=== PATIENT | female | born 1990 | race Caucasian/White ===

== ENCOUNTER → 2016-10-18 | Emergency (ER) | payer OTHER ==
[2016-10-18 23:13] VITALS: BP 94/53; PULSE 75; TEMP 97.4; BMI 29.2
--- NOTE | 2016-10-19 01:30 | PDOC ---
*Physical Exam - Vital Signs Last Vital Signs Temp Pulse Resp BP Pulse Ox 97.4 F L 75 17 94/53 99 10/18/16 23:05 10/18/16 23:05 10/18/16 23:05 10/18/16 23:05 10/18/16 23:05 Medical Decision Making - Medical Decision Making 10/19/16 01:30 25 yo F s/p injury upper extremity Pending xray Pt seen by Midlevel Provider under my direct supervision I agree with plan as outlined by Midlevel Provider *DC/Admit/Observation/Transfer Diagnosis at time of Disposition: Arm pain - Discharge Dispostion Disposition: HOME Condition at time of disposition: Stable - Patient Instructions Printed Discharge Instructions: DI for Arm Pain Additional Instructions: Give patient Tylenol or Motrin for pain as needed. Follow up with Primary Care Provider for further evaluation. Print Language: TRINIDADIAN
--- NOTE | 2016-10-19 03:29 | PDOC ---
History of Present Illness - General Chief Complaint: Pain, Acute Stated Complaint: PAIN Time Seen by Provider: 10/18/16 23:40 History Source: Care Provider Exam Limitations: Clinical Condition - History of Present Illness Initial Comments: 10/19/16 03:25 25y Female patient w/ PmHx: Severe Mental Retardation presented to ED by caregiver c/o possible right elbow injury. Caregiver states patient will not fully extend right arm and grimaces with range of motion. She states patient usually uses both arms frequently. Caregiver denies obvious trauma, injury, fall to affected arm. She states she is unaware of any injury that may have occurred. Occurred: reports: this evening Severity: reports: mild Upper Extremity Pain Location: right: elbow, arm Method of Injury: reports: unknown. denies: assault, burn, direct blow, fell, incised, motor vehicle accident, sports injury, twisted, other Modifying Factors: improves with: pain medication. worse with: None, cold therapy, immobilization, rest, other Associated Symptoms: See HPI Extremity Pain Location - Extremity Pain Location Extremity Pain Locations: right: elbow, arm Past History - Travel Traveled outside of the country in the last 30 days: No Close contact w/someone who was outside of country & ill: No - Past Medical History Allergies/Adverse Reactions: Allergies Allergy/AdvReac Type Severity Reaction Status Date / Time No Known Allergies Allergy Verified 10/18/16 23:04 Home Medications: Ambulatory Orders Aripiprazole 5 mg PO AM 10/19/16 Aripiprazole [Abilify] 20 mg PO AM 10/19/16 Cholecalciferol (Vitamin D3) [Vitamin D3] 2,000 iu PO DAILY 10/19/16 Citalopram Hydrobromide [Citalopram HBr] 20 mg PO DAILY 10/19/16 Clonazepam [Klonopin] 1 mg PO BID 10/19/16 Clonidine HCl 0.2 mg PO HS 10/19/16 Clonidine HCl [Catapres] 0.05 mg PO BID 10/19/16 Fluconazole 150 mg PO ONCE 10/19/16 Polyethylene Glycol 3350 [Miralax (For Bowel Prep) -] 17 gm PO DAILY 10/19/16 Ranitidine HCl 75 mg PO BID 10/19/16 Vitamin D2 50,000 iu PO WEEKLY 10/19/16 Other medical history: "Mentally Disabled" - Immunization History Immunization Up to Date: Yes - Psycho/Social/Smoking Cessation Hx Suicidal Ideation: No Smoking History: Never smoked Information on smoking cessation initiated: No Hx Alcohol Use: No Drug/Substance Use Hx: No Substance Use Type: None Review of Systems - Review of Systems Able to Perform ROS?: Yes Is the patient limited Swiss proficient: No Musculoskeletal: Yes: Other (Rt Elbow Pain) All Other Systems: Reviewed and Negative *Physical Exam - Vital Signs Last Vital Signs Temp Pulse Resp BP Pulse Ox 97.4 F L 75 17 94/53 99 10/18/16 23:05 10/18/16 23:05 10/18/16 23:05 10/18/16 23:05 10/18/16 23:05 - Physical Exam General Appearance: Yes: Nourished, Appropriately Dressed. No: Apparent Distress, Mild Distress, Moderate Distress, Severe Distress Respiratory/Chest: positive: Lungs Clear, Normal Breath Sounds. negative: Chest Tender, Respiratory Distress, Accessory Muscle Use, Labored Respiration, Rapid RR Cardiovascular: positive: Regular Rhythm, Regular Rate. negative: S1, S2, Edema , JVD Musculoskeletal: positive: Normal Inspection, Decreased Range of Motion (Rt Arm/ Elbow). negative: CVA Tenderness, Vertebral Tenderness Extremity: positive: Normal Capillary Refill, Normal Inspection. negative: Normal Range of Motion (Patient withdraw Rt arm during passive ROM. Patient extends arm when prompt to. No swelling, tenderness, erythema, bruising, or signs of injury.), Tender, Pedal Edema, Swelling, Calf Tenderness, Erythema, Inflammation Integumentary: positive: Normal Color, Dry, Warm Neurologic: positive: Alert, Normal Mood/Affect, Normal Response ED Treatment Course - RADIOLOGY Radiology Studies Ordered: Category Date Time Status ELBOW-RIGHT [RAD] Stat Radiology 10/18/16 23:50 Ordered *DC/Admit/Observation/Transfer Diagnosis at time of Disposition: Arm pain Qualifiers: Laterality: right Qualified Code(s): M79.601 - Pain in right arm - Discharge Dispostion Disposition: HOME Condition at time of disposition: Stable Admit: No - Patient Instructions Printed Discharge Instructions: DI for Arm Pain Additional Instructions: Give patient Tylenol or Motrin for pain as needed. Follow up with Primary Care Provider for further evaluation. Print Language: RUSSIAN
--- NOTE | 2016-10-19 08:14 | PDOC ---
Patient Follow-up (Call Back) - Post ED Follow - Up Condition at time of discharge: Stable Disposition at time of original discharge: HOME Reason for Call Back: Radiology ([facility]ed [facility] as well as patient's mother. Could not get in touch with anyone at [facility]. Left message for mother as the patient's xray read showed radial head fracture and she was not splinted.)
--- NOTE | 2016-10-19 08:43 | PDOC ---
Patient Follow-up (Call Back) - Post ED Follow - Up Condition at time of discharge: Stable Disposition at time of original discharge: HOME Reason for Call Back: Radiology (The patient's mother called me back. She is going to get a hold of the facility the patient is at and bring her back in for splinting.)
== END | disposition home or self-care (01) ==
LOC: JER 22:42
DX: M79.601 Pain in right arm (principal); F79 Unspecified intellectual disabilities
CPT/HCPCS: 73070-TC-RT; 99282-25

== ENCOUNTER 2016-10-19 11:45 | Emergency (ER) | payer OTHER ==
[2016-10-19 11:52] VITALS: BP 104/66; PULSE 77; TEMP 97.6; BMI 20.5
--- NOTE | 2016-10-19 12:52 | PDOC ---
History of Present Illness - General Chief Complaint: Revisit,Radiology Variance Stated Complaint: REVISIT/ X RAY RECALLED Time Seen by Provider: 10/19/16 12:10 History Source: Other (direct care worker) Exam Limitations: Physical Impairment (cerebral palsy) - History of Present Illness Initial Comments: 10/19/16 13:12 25-year-old female resident of [facility] sent back in for abnormal radiology reading of elbow x-ray that was done yesterday. As per radiologist patient had radial head fracture. As per direct care worker unsure of how patient sustained injury but had noted her guarding her right elbow yesterday during blood pressure check. Timing/Duration: unsure Severity: mild Associated Symptoms: reports: denies symptoms Past History - Past Medical History Allergies/Adverse Reactions: Allergies Allergy/AdvReac Type Severity Reaction Status Date / Time No Known Allergies Allergy Verified 10/19/16 11:52 Home Medications: Ambulatory Orders Aripiprazole 5 mg PO AM 10/19/16 Aripiprazole [Abilify] 20 mg PO AM 10/19/16 Cholecalciferol (Vitamin D3) [Vitamin D3] 2,000 iu PO DAILY 10/19/16 Citalopram Hydrobromide [Citalopram HBr] 20 mg PO DAILY 10/19/16 Clonazepam [Klonopin] 1 mg PO BID 10/19/16 Clonidine HCl 0.2 mg PO HS 10/19/16 Clonidine HCl [Catapres] 0.05 mg PO BID 10/19/16 Fluconazole 150 mg PO ONCE 10/19/16 Polyethylene Glycol 3350 [Miralax (For Bowel Prep) -] 17 gm PO DAILY 10/19/16 Ranitidine HCl 75 mg PO BID 10/19/16 Vitamin D2 50,000 iu PO WEEKLY 10/19/16 Cardiac Disorders: Yes (ASHD) GI Disorders: Yes (GERD) Psychiatric Problems: Yes (IMPULSE CONTROL DISORDER) Other medical history: INSOMNIA, PICA, PDD, MR, AUTISM - Immunization History Immunization Up to Date: Yes - Psycho/Social/Smoking Cessation Hx Suicidal Ideation: No Smoking History: Never smoked Hx Alcohol Use: No Drug/Substance Use Hx: No Substance Use Type: None Patient Lives Alone: No Lives with/in: group home Review of Systems - Review of Systems Able to Perform ROS?: No Constitutional: No: Symptoms Reported HEENTM: No: Symptoms Reported Respiratory: No: Symptoms reported Musculoskeletal: Yes: Joint Pain (rt elbow) Integumentary: No: Symptoms Reported *Physical Exam - Vital Signs Last Vital Signs Temp Pulse Resp BP Pulse Ox 97.6 F 77 20 104/66 100 10/19/16 11:48 10/19/16 11:48 10/19/16 11:48 10/19/16 11:48 10/19/16 11:48 - Physical Exam General Appearance: Yes: Nourished, Appropriately Dressed. No: Apparent Distress HEENT: positive: EOMI Extremity: positive: Normal Capillary Refill, Normal Inspection, Normal Range of Motion Integumentary: positive: Normal Color, Warm, Moist Neurologic: positive: Motor Strength 5/5 (ambulatory) Procedures - Splinting Splint Location: Right: Forearm Hand-Made Type: orthoglass Splint Type: Yes: Long Arm Post-Proc Neuro Vasc Exam: normal Moshe Bandage: 4" Sling: Yes Complications: No Good repositioning: Yes Medical Decision Making - Medical Decision Making 10/19/16 12:38 Patient sent here for abnormal radiology reading showing a radial head fracture. Patient was placed in a long-arm splint and sling and told to follow- up with ortho. *DC/Admit/Observation/Transfer Diagnosis at time of Disposition: Radial head fracture Qualifiers: Encounter type: initial encounter Fracture type: closed Laterality: right - Discharge Dispostion Disposition: HOME Condition at time of disposition: Good - Referrals Referrals: Felipe Conrad MD [Staff Physician] - - Patient Instructions Printed Discharge Instructions: How to Use a Sling, DI for Forearm Fracture Additional Instructions: Please follow-up with referred orthopedist or may use your own orthopedist. Please have patient with a sling during the day and may remove at night. May give Tylenol for discomfort.
== END 2016-10-19 13:20 | disposition home or self-care (01) ==
LOC: JERFT 11:45 → JER 11:45 → JERFT 13:20
PROC: 2W38X1Z Immobilization of Right Upper Extremity using Splint (ICD-10-PCS; principal; 2016-10-19)
DX: S52.124A Nondisplaced fracture of head of right radius, initial encounter for closed fracture (principal); X58.XXXA Exposure to other specified factors, initial encounter; Y93.9 Activity, unspecified; I25.10 Atherosclerotic heart disease of native coronary artery without angina pectoris; F63.9 Impulse disorder, unspecified; K21.9 Gastro-esophageal reflux disease without esophagitis; F84.0 Autistic disorder; F79 Unspecified intellectual disabilities; G47.00 Insomnia, unspecified
CPT/HCPCS: 29105; 99281-25

== ENCOUNTER 2016-10-28 09:11 | Emergency (ER) | payer OTHER ==
[2016-10-28 09:24] VITALS: BMI 25.2
--- NOTE | 2016-10-28 09:47 | PDOC ---
History of Present Illness - General Chief Complaint: Revisit,Wound Recheck Stated Complaint: REVISIT/ RT ARM IN CAST-DISCOLORATION Time Seen by Provider: 10/28/16 09:26 History Source: Care Provider (aide) Exam Limitations: Other (nonverbal at baseline) - History of Present Illness Initial Comments: 25 yo F history tan, , nonverbal at baseline. She was recently treated in ED for R radial head fracture, placed in a splint. She has removed the splint in the past. Today she was sent for discoloration of her fingers of the R hand- they appeared mottled. Patient unable to offer any complaints, she does not communicate verbally, however, she does not appear to have any discomfort. Past History - Past Medical History Allergies/Adverse Reactions: Allergies Allergy/AdvReac Type Severity Reaction Status Date / Time No Known Allergies Allergy Verified 10/28/16 09:15 Home Medications: Ambulatory Orders Aripiprazole 5 mg PO AM 10/19/16 Aripiprazole [Abilify] 20 mg PO AM 10/19/16 Cholecalciferol (Vitamin D3) [Vitamin D3] 2,000 iu PO DAILY 10/19/16 Citalopram Hydrobromide [Citalopram HBr] 20 mg PO DAILY 10/19/16 Clonazepam [Klonopin] 1 mg PO BID 10/19/16 Clonidine HCl 0.2 mg PO HS 10/19/16 Clonidine HCl [Catapres] 0.05 mg PO BID 10/19/16 Fluconazole 150 mg PO ONCE 10/19/16 Polyethylene Glycol 3350 [Miralax (For Bowel Prep) -] 17 gm PO DAILY 10/19/16 Ranitidine HCl 75 mg PO BID 10/19/16 Vitamin D2 50,000 iu PO WEEKLY 10/19/16 Cardiac Disorders: Yes (ASHD) GI Disorders: Yes (GERD) Psychiatric Problems: Yes (IMPULSE CONTROL DISORDER) Other medical history: MR,AUTISM,PICA - Immunization History Immunization Up to Date: Yes - Psycho/Social/Smoking Cessation Hx Suicidal Ideation: No Smoking History: Never smoked Hx Alcohol Use: No Drug/Substance Use Hx: No Substance Use Type: None Review of Systems - Review of Systems Able to Perform ROS?: No (nonverbal) *Physical Exam - Vital Signs Last Vital Signs Temp Pulse Resp BP Pulse Ox 75 17 84/53 96 10/28/16 09:15 10/28/16 09:15 10/28/16 09:15 10/28/16 09:15 - Physical Exam Comments: GENERAL: Awake, alert, in no acute distress HEAD: No signs of trauma EYES: PERRLA, EOMI, sclera anicteric, conjunctiva clear ENT: Auricles normal inspection, hearing grossly normal, nares patent, oropharynx clear without exudates. Moist mucosa NECK: Normal ROM, supple, no lymphadenopathy, JVD, or masses LUNGS: Breath sounds equal, clear to auscultation bilaterally. No wheezes, and no crackles HEART: Regular rate and rhythm, normal S1 and S2, no murmurs, rubs or gallops ABDOMEN: Soft, nontender, normoactive bowel sounds. No guarding, no rebound. No masses EXTREMITIES: R arm in splint, with slight mottling of fingers. Hands cool to touch bilaterally. Normal cap refill. Normal range of motion, no edema. No clubbing or cyanosis. No cords, erythema, or tenderness NEUROLOGICAL: Moving all extremities B/L. SKIN: Warm, Dry, normal turgor, no rashes or lesions noted. Procedures - Splinting Splint Location: Right: Elbow Pre-Proc Neuro Vasc Exam: normal Hand-Made Type: orthoglass Splint Type: Yes: Long Arm Post-Proc Neuro Vasc Exam: normal Moshe Bandage: 3" Sling: Yes Complications: No Progress: 10/28/16 10:55 Old splint removed, as it was extremely tight around the upper arm. At this point it became apparent that the splint was on backwards (the wrist portion was on the upper arm), which likely led to the mottling of her hand- the wrist portion was normal, compressing the upper arm. I created a new splint. Neurovascularly intact. *DC/Admit/Observation/Transfer Diagnosis at time of Disposition: Radial head fracture Qualifiers: Encounter type: initial encounter Fracture type: closed Fracture alignment: nondisplaced Laterality: left Qualified Code(s): S52.125A - Nondisplaced fracture of head of left radius, initial encounter for closed fracture - Discharge Dispostion Disposition: HOME Condition at time of disposition: Stable Admit: No - Referrals Referrals: Felipe Conrad MD [Staff Physician] - - Patient Instructions Printed Discharge Instructions: How to Take Care of Your Splint
[2016-10-28 11:21] VITALS: BP 92/68; PULSE 78
== END 2016-10-28 11:21 | disposition home or self-care (01) ==
LOC: JER 09:11
PROC: 2W38X1Z Immobilization of Right Upper Extremity using Splint (ICD-10-PCS; principal; 2016-10-28)
DX: S52.125D Nondisplaced fracture of head of left radius, subsequent encounter for closed fracture with routine healing (principal); X58.XXXD Exposure to other specified factors, subsequent encounter; Y93.89 Activity, other specified; Y92.89 Other specified places as the place of occurrence of the external cause; Y99.8 Other external cause status; I25.10 Atherosclerotic heart disease of native coronary artery without angina pectoris; F63.9 Impulse disorder, unspecified; F72 Severe intellectual disabilities; F84.0 Autistic disorder
CPT/HCPCS: 29105; 99285-25

== ENCOUNTER 2016-11-05 16:08 | Emergency (ER) | payer OTHER ==
[2016-11-05 16:49] VITALS: BP 110/60; PULSE 78; TEMP 98; BMI 24.6
--- NOTE | 2016-11-05 17:31 | PDOC ---
History of Present Illness - General Chief Complaint: Redness To Affected Area Stated Complaint: SWELLING ON RT ARM Time Seen by Provider: 11/05/16 17:02 History Source: Other (home care nurse) Exam Limitations: No Limitations - History of Present Illness Initial Comments: 11/05/16 17:23 25 yr old female presents to the ED for evaluation of swelling to the right hand with subjective concern of feeling the fingers as cool, as per consultation sheet provided by the boarding house manager. Patient status post right radial head fracture on the 25 and has an upcoming orthopedic appointment on the . As per staff patient does not keep her sling on and is often not elevating as recommended. Patient with history of mental retardation, cerebral palsy. Timing/Duration: 24 hours Severity: mild Associated Symptoms: reports: denies symptoms Past History - Travel Traveled outside of the country in the last 30 days: No - Past Medical History Allergies/Adverse Reactions: Allergies Allergy/AdvReac Type Severity Reaction Status Date / Time No Known Allergies Allergy Verified 11/05/16 16:44 Home Medications: Ambulatory Orders Aripiprazole 5 mg PO AM 10/19/16 Aripiprazole [Abilify] 20 mg PO AM 10/19/16 Cholecalciferol (Vitamin D3) [Vitamin D3] 2,000 iu PO DAILY 10/19/16 Citalopram Hydrobromide [Citalopram HBr] 20 mg PO DAILY 10/19/16 Clonazepam [Klonopin] 1 mg PO BID 10/19/16 Clonidine HCl 0.2 mg PO HS 10/19/16 Clonidine HCl [Catapres] 0.05 mg PO BID 10/19/16 Polyethylene Glycol 3350 [Miralax (For Bowel Prep) -] 17 gm PO DAILY 10/19/16 Cardiac Disorders: Yes (ASHD) GI Disorders: Yes (GERD) Psychiatric Problems: Yes (IMPULSE CONTROL DISORDER) - Immunization History Immunization Up to Date: Yes - Psycho/Social/Smoking Cessation Hx Anxiety: No Suicidal Ideation: No Smoking History: Never smoked Hx Alcohol Use: No Drug/Substance Use Hx: No Substance Use Type: None Patient Lives Alone: No Lives with/in: assisted living Review of Systems - Review of Systems Able to Perform ROS?: Yes Constitutional: No: Symptoms Reported Cardiac (ROS): Yes: Edema (to right hand) Musculoskeletal: No: Symptoms Reported, Joint Swelling Integumentary: No: Symptoms Reported, Erythema, Lumps, Pallor Neurological: No: Weakness *Physical Exam - Vital Signs Last Vital Signs Temp Pulse Resp BP Pulse Ox 98 F 78 18 110/60 98 11/05/16 16:43 11/05/16 16:43 11/05/16 16:43 11/05/16 16:43 11/05/16 16:43 - Physical Exam General Appearance: Yes: Nourished, Appropriately Dressed. No: Apparent Distress Comments:: 11/05/16 17:27 2+ right radial Extremity: positive: Normal Capillary Refill (2+) Integumentary: positive: Normal Color, Warm, Moist, Swelling (2+ pitting edema to the dorsal aspect of right hand to the base of first and second digits. Skin warm to touch and symmetrical to left hand) Neurologic: positive: Motor Strength 5/5 (right hand) Procedures - Splinting Splint Type: Yes: Long Arm (right) Moshe Bandage: 3" Sling: Yes Complications: No Good repositioning: Yes Medical Decision Making - Medical Decision Making 11/05/16 17:27 Here for evaluation of swelling to the right hand. Patient had a long arm splint placed here in the ER. I removed the Moshe wrap and splint which did not appear to be tight. Patient also found with sling behind her back and not with the arm in place. Patient had a long-arm splint reapplied with a 70 angle position. Patient will be discharged home with supportive care instructions and spoke to the home nurse and regards to elevating and fracture care. *DC/Admit/Observation/Transfer Diagnosis at time of Disposition: Radial head fracture Qualifiers: Fracture type: closed Fracture alignment: nondisplaced Laterality: right Fracture healing: with routine healing - Discharge Dispostion Disposition: HOME Condition at time of disposition: Good - Patient Instructions Printed Discharge Instructions: How to Use a Sling, DI for Forearm Fracture Additional Instructions: Please keep extremity elevated higher than the heart. May apply ice to the affected area. Please follow-up with orthopedist as discussed.
== END 2016-11-05 17:39 | disposition home or self-care (01) ==
LOC: JERFT 16:08
DX: S52.125D Nondisplaced fracture of head of left radius, subsequent encounter for closed fracture with routine healing (principal); Y93.89 Activity, other specified; Y92.89 Other specified places as the place of occurrence of the external cause; X58.XXXA Exposure to other specified factors, initial encounter; I25.10 Atherosclerotic heart disease of native coronary artery without angina pectoris; F63.9 Impulse disorder, unspecified; F72 Severe intellectual disabilities; F84.0 Autistic disorder
CPT/HCPCS: 99282-25

== ENCOUNTER 2016-11-06 16:32 | Emergency (ER) | payer OTHER ==
[2016-11-06 16:46] VITALS: BMI 25.7
--- NOTE | 2016-11-06 17:22 | PDOC ---
History of Present Illness - General Chief Complaint: Injury Stated Complaint: FALL/INJURY Time Seen by Provider: 11/06/16 17:07 - History of Present Illness Initial Comments: 11/06/16 18:59 Patient is a 25-year-old female past medical history of MR with patient nonverbal at baseline. Presents to the emergency department today complaining of falling. She is with her custody officer. Assembler Truck Trailer states that she saw the patient fall and hit her leg on the ground. Didn't. Denies hitting her head. This is the second fall the patient has had within the past day. She also fell a couple of times yesterday. Assembler Truck Trailer is concerned there is a reason for her falling. She is also concerned that there is injury to the left knee. Patient is unable to verbalize any complaints. Review of system is unable to be obtained. Past History - Travel Traveled outside of the country in the last 30 days: No Close contact w/someone who was outside of country & ill: No - Past Medical History Allergies/Adverse Reactions: Allergies Allergy/AdvReac Type Severity Reaction Status Date / Time No Known Allergies Allergy Verified 11/06/16 16:40 Home Medications: Ambulatory Orders Aripiprazole 5 mg PO AM 10/19/16 Aripiprazole [Abilify] 20 mg PO AM 10/19/16 Cholecalciferol (Vitamin D3) [Vitamin D3] 2,000 iu PO DAILY 10/19/16 Citalopram Hydrobromide [Citalopram HBr] 20 mg PO DAILY 10/19/16 Clonazepam [Klonopin] 1 mg PO BID 10/19/16 Clonidine HCl 0.2 mg PO HS 10/19/16 Clonidine HCl [Catapres] 0.05 mg PO BID 10/19/16 Polyethylene Glycol 3350 [Miralax (For Bowel Prep) -] 17 gm PO DAILY 10/19/16 Cardiac Disorders: Yes (ASHD) GI Disorders: Yes (GERD) Psychiatric Problems: Yes (IMPULSE CONTROL DISORDER) Other medical history: PICA, MR,AUTISM - Immunization History Immunization Up to Date: Yes - Psycho/Social/Smoking Cessation Hx Anxiety: No Suicidal Ideation: No Smoking History: Never smoked Hx Alcohol Use: No Drug/Substance Use Hx: No Substance Use Type: None Review of Systems - Review of Systems Able to Perform ROS?: No (non-verbal) *Physical Exam - Vital Signs Last Vital Signs Temp Pulse Resp BP Pulse Ox 66 20 91/40 94 L 11/06/16 16:33 11/06/16 16:33 11/06/16 16:33 11/06/16 16:33 - Physical Exam General Appearance: Yes: Nourished, Appropriately Dressed. No: Apparent Distress HEENT: positive: EOMI, PARVEZ, Pharynx Normal, Other (excessive ear wax b/l unable to visualize TM's) Neck: positive: Trachea midline, Supple. negative: Tender, Rigid Respiratory/Chest: positive: Lungs Clear, Normal Breath Sounds. negative: Chest Tender, Respiratory Distress, Accessory Muscle Use, Rales, Rhonchi, Wheezing Cardiovascular: positive: Regular Rhythm, Regular Rate, S1, S2 (present). negative: Murmur Extremity: positive: Normal Capillary Refill, Normal Range of Motion, Other (pt unable to tell us if L knee is tender to palpation, r extremity with splint in place d/t old fracture) Integumentary: positive: Swelling (l knee), Bruising (l knee) Neurologic: positive: Other (unable to evaluate d/t MR) Medical Decision Making - Medical Decision Making 11/06/16 19:06 Patient is a 25-year-old female past medical history MR, nonverbal presents to the emergency department after having multiple falls. On exam she does have extensive earwax in both ears bilaterally. Patient also has swelling to the left lower extremity notably at the knee with mild abrasions. We'll order basic lab work to rule out infection including a UA as well given her falls are not typical. We will order knee x-ray and chest x-ray. 1. CBC, CMP UA, UC, preg 2. CXR, LLE x-ray 3. re-evaluate Reevaluate. Sign out given to Tadeo Lopez, EM resident
[2016-11-06 20:05] VITALS: BP 109/66; PULSE 71
[2016-11-06 20:08] LABS: URINE APPEARANCE CLEAR; URINE BILIRUBIN NEGATIVE (NEGATIVE); URINE BLOOD NEGATIVE (NEGATIVE); URINE COLOR YELLOW; URINE GLUCOSE (UA) NEGATIVE (NEGATIVE); URINE KETONE NEGATIVE (NEGATIVE); URINE LEUK ESTERASE NEGATIVE (NEGATIVE); URINE NITRITE NEGATIVE (NEGATIVE); URINE PROTEIN NEGATIVE (NEGATIVE); URINE UROBILINOGEN NEGATIVE mg/dL (0.2-1.0)
[2016-11-06] MEDS ORDERED: cefTRIAXone SODIUM 1 GM VIAL IM ONE (21:30)
--- NOTE | 2016-11-06 21:35 | PDOC ---
*Physical Exam - Vital Signs Last Vital Signs Temp Pulse Resp BP Pulse Ox 71 18 109/66 100 11/06/16 20:04 11/06/16 20:04 11/06/16 20:04 11/06/16 20:04 ED Treatment Course - ADDITIONAL ORDERS Additional order review: Laboratory Results 11/06/16 20:00 Urine Color Yellow Urine Appearance Clear Urine pH 5.0 Urine Protein Negative Urine Glucose (UA) Negative Urine Ketones Negative Urine Blood Negative Urine Nitrite Negative Urine Bilirubin Negative Urine Urobilinogen Negative Ur Leukocyte Esterase Negative Urine HCG, Qual Negative Medical Decision Making - Medical Decision Making 11/06/16 21:31 Pt found to have pneumonic process on chest xray. h/o fall. pt afebrile. UA negative. Will treat for pneumonia. Will give first dose of IM Rochephine and discharge with po Augmentin 50mg PO bid. *DC/Admit/Observation/Transfer Diagnosis at time of Disposition: Fall Pneumonia Qualifiers: Pneumonia type: due to unspecified organism Laterality: right - Discharge Dispostion Disposition: HOME Condition at time of disposition: Stable Admit: No - Prescriptions Prescriptions: Amox-Tr/K Cl [Augmentin - 500Mg Tablet] 1 tab PO BID #14 tab - Patient Instructions Printed Discharge Instructions: DI for Pneumonia -- Adult, Flat Foot
[2016-11-06] MEDS ORDERED: FLUCONAZOLE 50 MG TABLET PO ONE (21:40)
[2016-11-06] MEDS ORDERED: cefTRIAXone SODIUM 1 GM VIAL ONE (21:48)
[2016-11-06] MEDS ORDERED: FLUCONAZOLE 100 MG TABLET (UD) ONE (21:48)
== END 2016-11-06 22:03 | disposition home or self-care (01) ==
LOC: JER 16:32
DX: J18.9 Pneumonia, unspecified organism (principal); F79 Unspecified intellectual disabilities; Z91.81 History of falling; I25.10 Atherosclerotic heart disease of native coronary artery without angina pectoris; F63.9 Impulse disorder, unspecified; K21.9 Gastro-esophageal reflux disease without esophagitis
CPT/HCPCS: 71020-TC; 73560-TC-LT; 81003; 84703; 87086; 99283-25

== ENCOUNTER 2017-05-06 10:11 | Emergency (ER) | payer OTHER ==
[2017-05-06 10:50] VITALS: BP 100/56; PULSE 98; TEMP 97.5; BMI 23.9
--- NOTE | 2017-05-06 12:01 | PDOC ---
History of Present Illness - General Chief Complaint: Eye Problem Stated Complaint: EYE PROBLEM Time Seen by Provider: 05/06/17 11:54 - History of Present Illness Initial Comments: 05/06/17 12:56 The patient is a 26 year old female with a significant PMH of autism (non-verbal ), cerebral palsy who presents with her caregiver to the emergency department with right eye redness beginning approximately 3 days ago. As per the patients caregiver, the conjunctiva and surrounding skin of the patients right eye has become progressively redder over the past 3 days and she notes the patient has been rubbing it due to irritation. She is unsure if there is associated pain with the patients right eye redness as the patient is non-verbal. The patient's caregiver denies noting any associated discharge or swelling. She denies any changes in the patients medications. She denies any change in the patients cosmetic products. The patients caregiver also notes the patient has had a dry cough over the past day. The patient denies chest pain, shortness of breath, headache and dizziness. Denies fever, chills, nausea, vomit, diarrhea and constipation. Denies dysuria, frequency, urgency and hematuria. Allergies: NKA Past surgical history: None reported. Social history: No reported cigarette, alcohol, or drug use. PCP: Part of an unspecified caregiver facility. Past History - Past Medical History Allergies/Adverse Reactions: Allergies Allergy/AdvReac Type Severity Reaction Status Date / Time No Known Allergies Allergy Verified 05/06/17 10:41 Home Medications: Ambulatory Orders Aripiprazole 5 mg PO AM 10/19/16 Aripiprazole [Abilify] 20 mg PO AM 10/19/16 Cholecalciferol (Vitamin D3) [Vitamin D3] 2,000 iu PO DAILY 10/19/16 Citalopram Hydrobromide [Citalopram HBr] 20 mg PO DAILY 10/19/16 Clonazepam [Klonopin] 1 mg PO BID 10/19/16 Clonidine HCl 0.2 mg PO HS 10/19/16 Clonidine HCl [Catapres] 0.05 mg PO BID 10/19/16 Polyethylene Glycol 3350 [Miralax (For Bowel Prep) -] 17 gm PO DAILY 10/19/16 Amox-Tr/K Cl [Augmentin - 500Mg Tablet] 1 tab PO BID #14 tab 11/06/16 Polymyxin B Sulfate/Tmp [Polytrim Opthalmic Solution -] 1 drop OP Q6H 7 Days #1 bottle 05/06/17 Cardiac Disorders: Yes (ASHD) COPD: No GI Disorders: Yes (GERD) Psychiatric Problems: Yes (IMPULSE CONTROL DISORDER) - Immunization History Immunization Up to Date: Yes - Suicide/Smoking/Psychosocial Hx Smoking History: Never smoked Information on smoking cessation initiated: No Hx Alcohol Use: No Drug/Substance Use Hx: No Substance Use Type: None Review of Systems - Review of Systems Comments:: 05/06/17 12:56 GENERAL/CONSTITUTIONAL: No fever or chills. No weakness. HEAD, EYES, EARS, NOSE AND THROAT: (+) Right eye conjunctiva and surrounding skin redness. No change in vision. No ear pain or discharge. No sore throat. GASTROINTESTINAL: No nausea, vomiting, diarrhea or constipation. GENITOURINARY: No dysuria, frequency, or change in urination. CARDIOVASCULAR: No chest pain or shortness of breath. RESPIRATORY: (+) Dry cough. No wheezing, or hemoptysis. MUSCULOSKELETAL: No joint or muscle swelling or pain. No neck or back pain. SKIN: No rash NEUROLOGIC: No headache, vertigo, loss of consciousness, or change in strength/ sensation. ENDOCRINE: No increased thirst. No abnormal weight change. HEMATOLOGIC/LYMPHATIC: No anemia, easy bleeding, or history of blood clots. ALLERGIC/IMMUNOLOGIC: No hives or skin allergy. *Physical Exam - Vital Signs Last Vital Signs Temp Pulse Resp BP Pulse Ox 97.5 F L 98 H 16 100/56 97 05/06/17 10:42 05/06/17 10:42 05/06/17 10:42 05/06/17 10:42 05/06/17 10:42 - Physical Exam Comments: 05/06/17 12:57 GENERAL: Awake, alert, and fully oriented, in no acute distress HEAD: No signs of trauma EYES: PERRLA, EOMI, sclera anicteric, OD conjunctiva injected with minimal clear d/c. Fluorescien testing is negative for corneal abrasion. ENT: Auricles normal inspection, hearing grossly normal, nares patent, oropharynx clear without exudates. Moist mucosa NECK: Normal ROM, supple, no lymphadenopathy, JVD, or masses LUNGS: Breath sounds equal, clear to auscultation bilaterally. No wheezes, and no crackles HEART: Regular rate and rhythm, normal S1 and S2, no murmurs, rubs or gallops ABDOMEN: Soft, nontender, normoactive bowel sounds. No guarding, no rebound. No masses EXTREMITIES: Normal range of motion, no edema. No clubbing or cyanosis. No cords , erythema, or tenderness BACK: No midline spinal tenderness in cervical/thoracic/lumbar region NEUROLOGICAL: Normal speech, cranial nerves intact, negative pronator drift, 5/ 5 strength in all 4 extremities, normal sensation to light touch in all 4 extremities, normal cerebellar exam, normal gait, normal reflexes and tone SKIN: Warm, Dry, normal turgor, no rashes or lesions noted. Medical Decision Making - Medical Decision Making 05/06/17 12:49 26-year-old female with a history of cerebral palsy, nonverbal presents with right eye redness for 3 days. Vitals unremarkable. Exam with conjunctival erythema, but fluorescein testing negative for corneal abrasion, eyelids everted with no foreign body noted. Given clear discharge noted on exam, likely viral conjunctivitis. Will give Polytrim drops and provide referral for ophthalmology. *DC/Admit/Observation/Transfer Diagnosis at time of Disposition: Conjunctivitis - Discharge Dispostion Disposition: HOME Condition at time of disposition: Stable - Prescriptions Prescriptions: Polymyxin B Sulfate/Tmp [Polytrim Opthalmic Solution -] 1 drop OP Q6H 7 Days #1 bottle - Referrals Referrals: Pablo Steward MD [Staff Physician] - - Patient Instructions Additional Instructions: Follow-up with the hay chopper within 1 week. Give Crystal the eye drops every 6 hours for 7 days. Return to emergency department if Jerica has any new , worsening or concerning symptoms. - Post Discharge Activity - Attestations Physician Attestion: 05/06/17 12:53 I, Dr. Isidoro Hamm MD, attest that this document has been prepared under my direction and personally reviewed by me in its entirety. I further attest, that it accurately reflects all work, treatment, procedures and medical decision -making performed by me.
== END 2017-05-06 14:46 | disposition home or self-care (01) ==
LOC: JERFT 10:11 → JER 10:11
DX: H10.31 Unspecified acute conjunctivitis, right eye (principal); F84.0 Autistic disorder; G80.9 Cerebral palsy, unspecified
CPT/HCPCS: 99283-25

== ENCOUNTER 2018-04-08 07:56 | Emergency (ER) | payer OTHER ==
[2018-04-08 08:19] VITALS: BP 100/51; PULSE 87; TEMP 98.1; BMI 25.7
--- NOTE | 2018-04-08 08:19 | PDOC ---
History of Present Illness - General Chief Complaint: RX Refill Stated Complaint: MEDICATION Time Seen by Provider: 04/08/18 08:18 History Source: Long Term Records - History of Present Illness Initial Comments: 04/08/18 08:31 27year old female from [facility] long term history of MR and autism. As Per Bruno seo patient ran out of meds last night need the Am dose of Clonazepan 1mg dose. denies any other complaints at this time. 04/08/18 08:31 04/08/18 08:33 Past History - Past Medical History Allergies/Adverse Reactions: Allergies Allergy/AdvReac Type Severity Reaction Status Date / Time No Known Allergies Allergy Verified 05/06/17 10:41 Home Medications: Ambulatory Orders Aripiprazole 5 mg PO AM 10/19/16 Aripiprazole [Abilify] 20 mg PO AM 10/19/16 Cholecalciferol (Vitamin D3) [Vitamin D3] 2,000 iu PO DAILY 10/19/16 Citalopram Hydrobromide [Citalopram HBr] 20 mg PO DAILY 10/19/16 Clonazepam [Klonopin] 1 mg PO BID 10/19/16 Clonidine HCl 0.2 mg PO HS 10/19/16 Clonidine HCl [Catapres] 0.05 mg PO BID 10/19/16 Polyethylene Glycol 3350 [Miralax (For Bowel Prep) -] 17 gm PO DAILY 10/19/16 Amox-Tr/K Cl [Augmentin - 500Mg Tablet] 1 tab PO BID #14 tab 11/06/16 Polymyxin B Sulfate/Tmp [Polytrim Opthalmic Solution -] 1 drop OP Q6H 7 Days #1 bottle 05/06/17 Cardiac Disorders: Yes (ASHD) COPD: No GI Disorders: Yes (GERD) Psychiatric Problems: Yes (IMPULSE CONTROL DISORDER) - Immunization History Immunization Up to Date: Yes - Suicide/Smoking/Psychosocial Hx Smoking History: Never smoked Hx Alcohol Use: No Drug/Substance Use Hx: No Substance Use Type: None *Physical Exam - Vital Signs Last Vital Signs Temp Pulse Resp BP Pulse Ox 98.1 F 87 17 100/51 L 98 04/08/18 08:16 04/08/18 08:16 04/08/18 08:16 04/08/18 08:16 04/08/18 08:16 - Physical Exam General Appearance: Yes: Appropriately Dressed, Other (nonverbal) Moderate Sedation - Procedure Monitoring Vital Signs: Procedure Monitoring Vital Signs Temperature 98.1 F 04/08/18 08:16 Pulse Rate 87 04/08/18 08:16 Respiratory Rate 17 04/08/18 08:16 Blood Pressure 100/51 L 04/08/18 08:16 O2 Sat by Pulse Oximetry (%) 98 04/08/18 08:16 *DC/Admit/Observation/Transfer Diagnosis at time of Disposition: Medication administered - Discharge Dispostion Disposition: HOME - Referrals Referrals: Rosario Aguirre [Primary Care Provider] - 24 hours - Patient Instructions Additional Instructions: please follow up with PCP for additional refill. One dose of clonazepam 1 mg tab x1 given in the ED. - Post Discharge Activity
[2018-04-08] MEDS ORDERED: clonazePAM 0.5 MG TABLET PO ONE (08:31)
[2018-04-08] MEDS ORDERED: clonazePAM 0.5 MG TABLET ONE (08:33)
== END 2018-04-08 08:39 | disposition home or self-care (01) ==
LOC: JERFT 07:56
DX: Z76.0 Encounter for issue of repeat prescription (principal); K21.9 Gastro-esophageal reflux disease without esophagitis; I25.10 Atherosclerotic heart disease of native coronary artery without angina pectoris; F79 Unspecified intellectual disabilities; F84.0 Autistic disorder
CPT/HCPCS: 99281-25

== ENCOUNTER 2018-04-17 10:30 | Emergency (ER) | payer OTHER ==
[2018-04-17 10:41] VITALS: BP 91/46; PULSE 97; BMI 26.5
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
== END 2018-04-17 11:35 | disposition home or self-care (01) ==
LOC: JERFT 10:30
DX: Z04.1 Encounter for examination and observation following transport accident (principal); V53.6XXA Passenger in pick-up truck or van injured in collision with car, pick-up truck or van in traffic accident, initial encounter; Y92.414 Local residential or business street as the place of occurrence of the external cause; Y93.89 Activity, other specified; Y99.9 Unspecified external cause status; F63.9 Impulse disorder, unspecified; K21.9 Gastro-esophageal reflux disease without esophagitis; I25.10 Atherosclerotic heart disease of native coronary artery without angina pectoris
CPT/HCPCS: 99281-25

== ENCOUNTER 2018-08-19 09:51 | Emergency (ER) | payer OTHER ==
[2018-08-19 10:12] VITALS: BP 107/68; PULSE 78; TEMP 98.3; BMI 28.0
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
== END 2018-08-19 11:25 | disposition home or self-care (01) ==
LOC: JER 09:51
CPT/HCPCS: 99282-25

== ENCOUNTER 2018-09-07 18:26 | Emergency (ER) | payer OTHER | END 2018-09-07 19:53 | disposition home or self-care (01) | LOC: JERFT 18:26 ==